=== PATIENT | male | born 1985 | race Caucasian/White ===

== ENCOUNTER 2019-06-23 09:00 | Inpatient (IN) | payer MEDICAID ==
[~2019-06-23] VITALS: Ht 188 cm; Wt 126.1 kg
[2019-06-23 13:20] VITALS: BP 139/96
[2019-06-23] MEDS: LORazepam 2 MG TABLET PO PRN (13:31)
[2019-06-23] MEDS: SERTRALINE HCL 50 MG TABLET PO SCH (13:31)
[2019-06-23] MEDS: NICOTINE 14 MG/24 HOUR PATCH TD SCH (14:19)
[2019-06-23 16:04] VITALS: BP 121/74
[2019-06-23] MEDS: QUEtiapine FUMARATE 200 MG TABLET PO SCH (20:18)
[2019-06-24] MEDS: ZOLPIDEM TARTRATE 10 MG TABLET PO PRN ×2 (00:15→21:10)
[2019-06-24 00:18] VITALS: BP 102/68
[2019-06-24 07:26] LABS: BASOPHILS % (AUTO) 0.8 % (0.0-2.0); EOSINOPHILS % (AUTO) 2.4 % (1.0-6.0); HEMATOCRIT 45.6 % (41-53); HEMOGLOBIN 14.9 g/dL (13.5-17.5); LYMPHOCYTES # (AUTO) 3.6 K/uL (1.0-4.8); LYMPHOCYTES % (AUTO) 51.5 % (22.0-44.0); MEAN CORPUSCULAR HEMOGLOBIN 29.6 pg (26.0-34.0); MEAN CORPUSCULAR HGB CONC 32.8 G/dL (31.0-37.0); MEAN CORPUSCULAR VOLUME 90 fL (80-100); MONOCYTES # (AUTO) 0.7 K/uL (0.1-1.0); MONOCYTES % (AUTO) 10.4 % (2.0-9.0); NEUTROPHILS # (AUTO) 2.4 K/uL (1.8-7.7); NEUTROPHILS % (AUTO) 34.9 % (40.0-70.0); PLATELET COUNT (AUTO) 270 K/uL (150-450); RED BLOOD CELL COUNT(AUTO) 5.05 MIL/uL (4.50-5.90); RED CELL DISTRIBUTION WIDTH 13.7 % (11.5-14.5)
[2019-06-24 07:49] LABS: ALANINE AMINOTRANSFERASE 32 U/L (12-78); ALBUMIN 3.4 g/dL (3.4-5.0); ALKALINE PHOSPHATASE 98 U/L (46-116); ANION GAP 6 mmol/L (8-16); ASPARTATE AMINOTRANSFERASE 15 U/L (15-37); BILIRUBIN,TOTAL 0.6 mg/dL (0.1-1.0); CALCIUM, TOTAL 9.1 mg/dL (8.8-10.5); CARBON DIOXIDE 28 mmol/L (22-29); CHLORIDE 105 mmol/L (98-107); CHOLESTEROL 179 mg/dL (131-200); FREE T4 (FREE THYROXINE) 0.93 ng/dL (0.76-1.46); GLOMERULAR FILTR. RATE CALC > 60 mL/min (>60); GLUCOSE,RANDOM 90 mg/dL (70-110); HDL CHOLESTEROL 30 mg/dL (40-60); LDL CHOL (CALC.) 127 mg/dL (0-130); POTASSIUM 3.9 mmol/L (3.5-5.1); SODIUM SERUM 139 mmol/L (136-145); THYROID STIMULATING HORMONE 1.02 uIU/mL (0.36-3.74); TOTAL PROTEIN, SERUM 6.8 g/dL (6.4-8.2); TRIGLYCERIDES 111 mg/dL (15-150); UREA NITROGEN, BLOOD 14 mg/dL (7-18)
[2019-06-24] MEDS ORDERED: LOPERAMIDE HCL 2 MG CAPSULE PO PRN (08:15)
[2019-06-24] MEDS ORDERED: MAGNESIUM HYDROXIDE SUSPENSION 30 ML UDCUP PO PRN (08:15)
[2019-06-24] MEDS ORDERED: IBUPROFEN 600 MG TABLET PO PRN (08:15)
[2019-06-24] MEDS ORDERED: BENZOCAINE/MENTHOL LOZENGE MM PRN (08:15)
[2019-06-24] MEDS ORDERED: BACITRACIN 28.4 GM OINTMENT TP PRN (08:15)
[2019-06-24] MEDS ORDERED: ACETAMINOPHEN 325 MG TABLET PO PRN (08:15)
[2019-06-24] MEDS ORDERED: CloNIDine HCL 0.1 MG TABLET PO PRN (08:15)
[2019-06-24] MEDS ORDERED: ONDANSETRON HCL 4 MG TABLET PO PRN (08:15)
[2019-06-24] MEDS ORDERED: ALBUTEROL SULFATE HFA 90 MCG/PUFF 8 GM INHALER IH PRN (08:15)
[2019-06-24] MEDS ORDERED: MAG HYDROX/AL HYDROX/SIMETH ES 30 ML SUSPENSION UDCUP PO PRN (08:15)
[2019-06-24] MEDS ORDERED: PETROLATUM,WHITE 28 GM JELLY TP PRN (08:15)
[2019-06-24] MEDS: SERTRALINE HCL 50 MG TABLET PO SCH (08:30)
[2019-06-24] MEDS: NICOTINE 14 MG/24 HOUR PATCH TD SCH (08:31)
[2019-06-24] MEDS: LORazepam 2 MG TABLET PO PRN ×2 (08:37→17:31)
[2019-06-24] MEDS: QUEtiapine FUMARATE 100 MG TABLET PO PRN ×2 (08:37→17:29)
[2019-06-24 08:41] VITALS: BP 121/78
[2019-06-24] MEDS ORDERED: NO CURRENT MEDS (11:54)
[2019-06-24 16:06] VITALS: BP 120/92
[2019-06-24] MEDS: QUEtiapine FUMARATE 200 MG TABLET PO SCH (20:40)
[2019-06-25 01:10] VITALS: BP 100/51
[2019-06-25] MEDS: QUEtiapine FUMARATE 100 MG TABLET PO PRN (09:16)
[2019-06-25] MEDS: SERTRALINE HCL 50 MG TABLET PO SCH (09:16)
[2019-06-25] MEDS: LORazepam 2 MG TABLET PO PRN (09:16)
[2019-06-25] MEDS: NICOTINE 14 MG/24 HOUR PATCH TD SCH (09:16)
[2019-06-25 16:17] VITALS: BP 116/73
[2019-06-25] MEDS: QUEtiapine FUMARATE 200 MG TABLET PO SCH (20:26)
[2019-06-25] MEDS: ZOLPIDEM TARTRATE 10 MG TABLET PO PRN (21:05)
[2019-06-26 04:01] VITALS: BP 136/80
[2019-06-26] MEDS: LORazepam 2 MG TABLET PO PRN ×4 (04:02→20:19)
[2019-06-26] MEDS: SERTRALINE HCL 50 MG TABLET PO SCH (08:20)
[2019-06-26] MEDS: NICOTINE 14 MG/24 HOUR PATCH TD SCH (08:20)
[2019-06-26 08:27] VITALS: BP 121/78
[2019-06-26] MEDS: QUEtiapine FUMARATE 100 MG TABLET PO PRN ×2 (11:02→15:02)
[2019-06-26 16:15] VITALS: BP 115/76
[2019-06-26] MEDS: QUEtiapine FUMARATE 200 MG TABLET PO SCH (20:17)
[2019-06-27] MEDS: ZOLPIDEM TARTRATE 10 MG TABLET PO PRN ×2 (03:02→20:15)
[2019-06-27 03:03] VITALS: BP 123/72
[2019-06-27 08:09] VITALS: BP 124/87
[2019-06-27] MEDS: SERTRALINE HCL 50 MG TABLET PO SCH (08:25)
[2019-06-27] MEDS: LORazepam 2 MG TABLET PO PRN ×2 (08:25→15:57)
[2019-06-27] MEDS: QUEtiapine FUMARATE 200 MG TABLET PO SCH ×2 (08:25→20:02)
[2019-06-27] MEDS: OMEPRAZOLE 20 MG CAPSULE PO PRN (08:25)
[2019-06-27] MEDS: NICOTINE 14 MG/24 HOUR PATCH TD SCH (08:26)
[2019-06-27] MEDS: HALOPERIDOL 5 MG TABLET PO PRN ×2 (13:12→20:03)
[2019-06-27 16:06] VITALS: BP 140/82
[2019-06-28 03:53] VITALS: BP 127/81
[2019-06-28] MEDS: LORazepam 2 MG TABLET PO PRN ×3 (04:07→17:13)
[2019-06-28] MEDS: SERTRALINE HCL 50 MG TABLET PO SCH (07:57)
[2019-06-28] MEDS: QUEtiapine FUMARATE 200 MG TABLET PO SCH ×2 (07:57→20:15)
[2019-06-28] MEDS: NICOTINE 14 MG/24 HOUR PATCH TD SCH (07:58)
[2019-06-28 08:12] VITALS: BP 127/62
[2019-06-28] MEDS: HALOPERIDOL 5 MG TABLET PO PRN (11:49)
[2019-06-28 17:35] VITALS: BP 135/67
[2019-06-28] MEDS: ZOLPIDEM TARTRATE 10 MG TABLET PO PRN (20:16)
[2019-06-29] MEDS: HALOPERIDOL 5 MG TABLET PO PRN ×2 (01:15→13:15)
[2019-06-29 01:26] VITALS: BP 103/62
[2019-06-29] MEDS: LORazepam 2 MG TABLET PO PRN ×2 (03:10→11:42)
[2019-06-29 08:05] VITALS: BP 108/60
[2019-06-29] MEDS: OMEPRAZOLE 20 MG CAPSULE PO PRN (08:09)
[2019-06-29] MEDS: SERTRALINE HCL 50 MG TABLET PO SCH (08:09)
[2019-06-29] MEDS: DOCUSATE SODIUM 100 MG CAPSULE PO PRN (08:10)
[2019-06-29] MEDS: NICOTINE 14 MG/24 HOUR PATCH TD SCH (08:10)
[2019-06-29] MEDS: QUEtiapine FUMARATE 200 MG TABLET PO SCH ×2 (08:10→20:26)
[2019-06-29 16:16] VITALS: BP 110/61
[2019-06-29] MEDS: ZOLPIDEM TARTRATE 10 MG TABLET PO PRN (21:40)
[2019-06-30 06:21] VITALS: BP 106/72
[2019-06-30 08:35] VITALS: BP 125/76
[2019-06-30] MEDS: NICOTINE 14 MG/24 HOUR PATCH TD SCH (08:47)
[2019-06-30] MEDS: QUEtiapine FUMARATE 200 MG TABLET PO SCH ×2 (08:48→20:06)
[2019-06-30] MEDS: SERTRALINE HCL 50 MG TABLET PO SCH (08:48)
[2019-06-30] MEDS: DOCUSATE SODIUM 100 MG CAPSULE PO PRN (08:48)
[2019-06-30] MEDS: LORazepam 2 MG TABLET PO PRN (16:00)
[2019-06-30] MEDS: HALOPERIDOL 5 MG TABLET PO PRN (16:00)
[2019-06-30] MEDS ORDERED: DiphenhydrAMINE HCL 25 MG CAPSULE PO ONE (18:30)
[2019-06-30] MEDS ORDERED: LORazepam 2 MG TABLET PO ONE (18:30)
[2019-06-30] MEDS ORDERED: HALOPERIDOL 5 MG TABLET PO ONE (18:30)
[2019-06-30] MEDS: ZOLPIDEM TARTRATE 10 MG TABLET PO PRN (22:07)
[2019-07-01 04:27] VITALS: BP 110/68
[2019-07-01 08:16] VITALS: BP 124/66
[2019-07-01] MEDS: SERTRALINE HCL 50 MG TABLET PO SCH (08:41)
[2019-07-01] MEDS: QUEtiapine FUMARATE 200 MG TABLET PO SCH ×2 (08:42→20:02)
[2019-07-01] MEDS: NICOTINE 14 MG/24 HOUR PATCH TD SCH (08:42)
[2019-07-01] MEDS ORDERED: SERTRALINE HCL 50 MG TABLET PO ONE (10:00)
[2019-07-01] MEDS: HALOPERIDOL 5 MG TABLET PO PRN (16:06)
[2019-07-01] MEDS: LORazepam 2 MG TABLET PO PRN (16:06)
[2019-07-01 16:14] VITALS: BP 145/91
[2019-07-01] MEDS: ZOLPIDEM TARTRATE 10 MG TABLET PO PRN (20:02)
[2019-07-02 06:17] VITALS: BP 113/68
[2019-07-02 08:39] VITALS: BP 115/68
[2019-07-02] MEDS ORDERED: SERTRALINE HCL 50 MG TABLET PO SCH (09:00)
[2019-07-02] MEDS: QUEtiapine FUMARATE 200 MG TABLET PO SCH ×2 (09:14→20:21)
[2019-07-02] MEDS: SERTRALINE HCL 100 MG TABLET PO SCH (09:14)
[2019-07-02] MEDS: NICOTINE 14 MG/24 HOUR PATCH TD SCH (10:20)
[2019-07-02 16:06] VITALS: BP 132/71
[2019-07-02] MEDS: LORazepam 2 MG TABLET PO PRN (17:03)
[2019-07-02] MEDS: HALOPERIDOL 5 MG TABLET PO PRN (17:03)
[2019-07-02] MEDS: ZOLPIDEM TARTRATE 10 MG TABLET PO PRN (21:11)
[2019-07-03 01:11] VITALS: BP 130/72
[2019-07-03] MEDS: LORazepam 2 MG TABLET PO PRN ×2 (01:23→11:13)
[2019-07-03 08:17] VITALS: BP 113/60
[2019-07-03] MEDS: SERTRALINE HCL 100 MG TABLET PO SCH (09:26)
[2019-07-03] MEDS: QUEtiapine FUMARATE 200 MG TABLET PO SCH (09:26)
[2019-07-03] MEDS: NICOTINE 14 MG/24 HOUR PATCH TD SCH (09:27)
[2019-07-03 11:13] VITALS: BP 113/74
[2019-07-03] MEDS ORDERED: SERT100T12 PO ×2 (12:00→14:28)
[2019-07-03] MEDS ORDERED: QUET200T29 PO ×2 (12:00)
[2019-07-03] MEDS ORDERED: QUET200T PO ×2 (14:28)
[2019-07-03 16:13] VITALS: BP 127/84
== END 2019-07-03 17:45 | disposition home or self-care (01) | DRG 750 ==
LOC: B2S 13:18
DX: F25.1 Schizoaffective disorder, depressive type (principal); F41.9 Anxiety disorder, unspecified; G47.00 Insomnia, unspecified; K59.00 Constipation, unspecified; Z79.899 Other long term (current) drug therapy
CPT/HCPCS: 84439; 84443